=== PATIENT | female | born 1960 | race Caucasian/White ===

== ENCOUNTER → 2017-07-03 | Outpatient (CLI) | payer BC, SELFPAY | PROVIDERS: Family Provider Nurse Practitioner Family; Visit Provider Physician Assistant | DX: R00.0 Tachycardia, unspecified (principal) | CPT/HCPCS: 93005; 93225; 93226 ==

== ENCOUNTER → 2017-10-15 15:18 | Outpatient (CLI) | payer BC, SELFPAY ==
--- NOTE | 2017-10-15 15:22 | XR_ITS ---
XR shoulder RT min 2V COMPARISON: None HISTORY: Right shoulder pain TECHNIQUE: 3 views right shoulder FINDINGS: The clavicle is intact and the AC joint appears normal. Humeral head and glenoid appear normal and there are no soft tissue calcifications or foreign bodies. [place] right lung clear. Right sacrum unremarkable IMPRESSION: Negative right shoulder No fracture nor dislocation
--- NOTE | 2017-10-15 15:25 | XR_ITS ---
XR knee LT 3V COMPARISON: None HISTORY: Left knee pain TECHNIQUE: AP lateral and oblique views FINDINGS: There is no fracture or loose body and there is no degenerative change. The soft tissues are normal. There is no effusion. IMPRESSION: Negative left knee
== END ==
PROVIDERS: PCP Internal Medicine Adolescent Medicine; Visit Provider Orthopaedic Surgery
DX: M25.511 Pain in right shoulder (principal)
CPT/HCPCS: 73030; 73562

== ENCOUNTER → 2017-11-01 12:33 | Outpatient (CLI) | payer BC, SELFPAY ==
--- NOTE | 2017-11-01 12:38 | CA_ITS ---
PROCEDURE: with bubbles INDICATIONS FOR THE TEST: Chest pain COPD Heart Murmur Tobacco Smokingx Palpitationsx Fatiguex Syncope Edema HypertensionxDiabetes Mellitus Rheumatic Fever SOBxDOE ObesityxHyperlipidemia Family History HD Additional History with bubbles PATIENT INFORMATION HEIGHT: 5'4'' WEIGHT: 255 GENDER: Female B/P: 112/68 2-D/M-MODE INTERPRETATION: 2-D MEASUREMENTS OBSERVED VALUES IN CMS Right Ventricular Dimension (RVDd) 2.5 Interventricular Septum (Thickness)(IVsd) 0.8 Left Ventricular Internal Dimensions(LVIDd) 4.4 Left Ventricular Posterior Wall (Thickness)(LVPWd) 1.0 Aortic Root 2.8 Aortic Cusp Separation 1.9 Left Atrial Dimensions (LAD) 2.8 2D 1. Left atrium is normal size, left ventricle is normal size, visually estimated ejection fraction 55% with no obvious regional wall motion abnormality. 2. The right atrium and right ventricle are normal size and contractility. 3. The aortic valve is minimally thickened and fibrosed. 4. The mitral and tricuspid valve leaflets are minimally thickened. 5. The pulmonic valve is poorly is poorly visualized. 6. No significant pericardial effusion noted. DOPPLER INTERROGATION: Doppler interrogation of the aortic, mitral and tricuspid valvular presence of mild mitral and tricuspid regurgitation, tricuspid and jet velocity insufficient for calculation of the right ventricular systolic pressure, diastolic parameters are within normal range. Agitated saline contrast study fails to identify intracardiac shunt. CONCLUSION: 1. Normal left ventricular size, preserved left ventricular systolic function, visually estimated ejection fraction 55% with no obvious regional wall motion abnormality, diastolic parameters are within normal range. 2. Mild mitral and tricuspid regurgitation 3. Agitated saline contrast study fails to identify intracardiac shunt.
== END ==
PROVIDERS: Family Provider Nurse Practitioner Family; PCP Internal Medicine Adolescent Medicine; Visit Provider Physician Assistant
DX: R06.00 Dyspnea, unspecified (principal); R00.0 Tachycardia, unspecified; I10 Essential (primary) hypertension
CPT/HCPCS: 93306

== ENCOUNTER → 2017-11-05 10:47 | Outpatient (CLI) | payer BC, SELFPAY ==
--- NOTE | 2017-11-05 10:49 | NVE_ITS ---
Venous Exam Indications: 729.5 Pain in limb. IMPRESSIONS 1. There is no evidence of significant Reflux. 2. No evidence of deep or superficial vein thrombosis involving the left lower extremity Left lower extremity venous duplex evaluation. Doppler flow study including spectral analysis, color and kamara scale imaging. Location: Vascular laboratory. Patient status: Outpatient. CRITICAL FINDINGS - Reported to: Caron - Salvatore back and verified. - 11/05/17 - 1110 - None Tables: Venous flow and imaging: + +-------+ + Location Overall Flow properties + +-------+ + Left common femoral Patent Normal phasicity; spontaneous; normal augmentation; compressible + +-------+ + Left saphenofemoral junction Patent Compressible + +-------+ + Left profunda femoral Patent Compressible + +-------+ + Left femoral Patent Normal phasicity; spontaneous; normal augmentation; compressible + +-------+ + Left greater saphenous Patent Normal phasicity; spontaneous; normal augmentation; compressible + +-------+ + Left popliteal Patent Normal phasicity; spontaneous; normal augmentation; compressible + +-------+ + Left posterior tibial Patent Compressible + +-------+ + Left peroneal Patent Compressible + +-------+ + Left gastrocnemius Patent Compressible + +-------+ + Left soleal Patent Compressible + +-------+ + (Report amended ) Electronically signed by: Edison Severino [id number]
== END ==
PROVIDERS: PCP Nurse Practitioner Family; Visit Provider Nurse Practitioner Family
DX: M79.605 Pain in left leg (principal); M79.89 Other specified soft tissue disorders
CPT/HCPCS: 93971

== ENCOUNTER → 2019-11-19 12:28 | Outpatient (CLI) | payer MEDICAID, SELFPAY ==
--- NOTE | 2019-11-19 12:41 | XR_ITS ---
PROCEDURE: XR FOOT LT MIN 3V CLINICAL INDICATION: LT FOOT PAIN COMPARISON: No exams were available for comparison FINDINGS: No fracture or dislocation. No lytic or blastic change. There is normal mineralization. The joint spaces are well-preserved. No significant degenerative/arthritic changes. No erosive changes evident. Other findings:There is diffuse generalized osteopenia. There is a small calcaneal spur IMPRESSION: No acute finding. Diffuse osteopenia Dictated by: Edison Severino MD 11/19/2019 18:43 Electronically signed by Edison Severino MD in [facility] 11/19/2019 18:43
== END ==
PROVIDERS: PCP Nurse Practitioner Family; Visit Provider Nurse Practitioner Family
DX: M79.672 Pain in left foot (principal)
CPT/HCPCS: 73630

== ENCOUNTER → 2020-04-01 15:44 | Outpatient (CLI) | payer MEDICAID, SELFPAY ==
--- NOTE | 2020-04-01 | CA_ITS ---
APPROVED REPORT Left Lower Extremity Venous Study for DVT. Tapper Shank: CT Indications Lower Extremity Pain: Lower Extremity Edema: Left Vein Imaging CFV (L): Not Visualized SFJ (L): Not Visualized FEM (L): compressive, spontaneous, phasic, augmentation POP (L): compressive, spontaneous, phasic, augmentation DFV (L): compressive, spontaneous, phasic, augmentation PTV (L): compressive, spontaneous, phasic, augmentation GSV (L): compressive, spontaneous, phasic, augmentation SSV (L): compressive, spontaneous, phasic, augmentation Peroneals (L):Not Visualized GAS (L): compressive, spontaneous, phasic, augmentation Findings LLE neg for DVT/SVT. vessels compressible. Conclusion LLE neg for DVT/SVT. vessels compressible. Electronically signed by : Edison Severino MD 04/02/2020 15:51:25
== END ==
PROVIDERS: PCP Nurse Practitioner Family; Visit Provider Nurse Practitioner Family
DX: M79.605 Pain in left leg (principal); R60.0 Localized edema
CPT/HCPCS: 93971

== ENCOUNTER → 2020-05-25 15:33 | Outpatient (CLI) | payer MEDICAID, SELFPAY ==
--- NOTE | 2020-05-25 15:41 | MM_ITS ---
PROCEDURE: MM DIG SCREENING MAMM BI W/CAD Referring Doctor: Onur Canchola Patient Age:59Y CLINICAL INDICATION: screening, prior in pacs COMPARISON: MG DMDB DIG MAMM-DX DELONTE from 12/16/2013 MG DMSB DIG MAMM-SCREEN DELONTE from 02/03/2015 MG DMDXUL DIG MAMM-DX UNI-LT from 04/16/2015 MG DMDXUL DIG MAMM-DX UNI-LT from 05/05/2015 DX,US MTWCL US MAMMOTOME W/CLIP LT BREAST from 05/05/2015 TECHNIQUE: Standard CC and MLO images were obtained. R2 CAD reviewed. Bilateral digital breast tomosynthesis included. FINDINGS: . Or or low-density breast with generalized fatty read replacement but mild asymmetry again noted Left breast: Scattered low-density areas of nodularity at the lateral left breast are less evident than on previous year studies but there has been a biopsy here in this region with a metallic marker seen deep breast laterally . Right breast: No new findings of significant concern Few scattered benign calcifications again noted-including group of 3 tiny calcifications superior right breast, unchanged since 2014. Stable areas of minimal asymmetric density upper-outer quadrant right breast unchanged and dissipate on the tomosynthesis views Left breast: We again see small areas of nodularity towards the lateral left breast. These scattered areas of density appear fairly stable-and actually appear less dense and slight evident today versus April 2015 and 2013 exam.. There is a metallic micro clip along the posterior aspect of these areas of nodularity reflecting April 2015 biopsy.. With this overall cervical year stability appearance follow-up 1 year be adequate at this point IMPRESSION: No significant new findings either breast. Stable mammogram Left breast: . The scattered densities at the lateral left breast are again noted and appear overall stable, with no progression when compared back to 2013 mammogram . Note metallic micro marker is in place from the April 2015 ultrasound-guided biopsy of 1 of these areas nodularity. Right breast:-stable BI-RAD Category: 2 Benign Finding(s) FOLLOW-UP: 1YR 1 Year Follow-up (A letter has been sent to the patient regarding results of the study.) Dictated by: Waqas Mosley MD 06/02/2020 10:22 Waqas Mosley MD in [facility] 06/02/2020 10:22
== END ==
PROVIDERS: PCP Nurse Practitioner Family; Visit Provider Internal Medicine Adolescent Medicine
DX: Z12.31 Encounter for screening mammogram for malignant neoplasm of breast (principal)
CPT/HCPCS: 77063; 77067

== ENCOUNTER → 2020-07-15 12:18 | Outpatient (CLI) | payer MEDICAID, SELFPAY ==
--- NOTE | 2020-07-15 12:24 | XR_ITS ---
PROCEDURE: XR KUB Referring Doctor: Saumya Kierra Patient Age:59Y CLINICAL INDICATION: DIARRHEA,VOMITING, COMPARISON: CT ABDPELW/O CT ABD PELVIS W/O CONTRAST from 03/27/2015 FINDINGS: AP supine abdomen images obtained and reviewed. No upright images. There is moderate to generous stool throughout the right and transverse colon, and splenic flexure. No small bowel dilatation or obstruction evident. Question slight generous, upper normal wall thickness of gas within the small bowel loops towards left lower quadrant, with but no distension. Unimpressive unlikely normal overall . Small phleboliths at the lower pelvic basin. Clips right upper quadrant likely from cholecystectomy. Spleen appears normal upper normal size. No appreciable renal calcifications. Osseous structures unremarkable on AP view IMPRESSION: No acute findings abdomen A non-specific bowel gas pattern. No bowel dilatation or obstruction Dictated by: Waqas Mosley MD 07/15/2020 12:58 Waqas Mosley MD in [facility] 07/15/2020 12:58
== END ==
PROVIDERS: PCP Nurse Practitioner Family; Visit Provider Nurse Practitioner Family
DX: R68.81 Early satiety (principal); R19.7 Diarrhea, unspecified; R11.10 Vomiting, unspecified
CPT/HCPCS: 74018

== ENCOUNTER 2020-07-23 11:32 | Emergency (ER) | payer OTHER, SELFPAY ==
[2020-07-23 11:32] VITALS: BP 116/68; PULSE 87; RESP 16; TEMP 36.6; O2SAT 98; BMI 41.1
--- NOTE | 2020-07-23 11:38 | HMH.EDGENADL ---
ED Disposition Clinical Impression: Ankle pain, left Qualifiers: Chronicity: acute Qualified Code(s): M25.572 - Pain in left ankle and joints of left foot Disposition: Home, Self-Care Condition on Discharge: Good Additional Instructions: Please return if any new or worsening symptoms. Otherwise use Tylenol and ice on affected area. Referrals: PCP,No [Primary Care Provider] - - Critical Care Critical Care Time: No Attestation: On , the high probability of a clinically significant, sudden or life threatening deterioration of the following system(s) required my full and direct attention, intervention and personal management. The time I documented below is in addition to time spent performing reported procedures but includes the following listed in this critical care notation. Medical Decision Making - Medical Records Medical records reviewed: Yes: I reviewed the patient's medical records. - Shan Inquiry Pt receiving controlled substance: No Vital Signs: 07/23/20 11:32 Temperature 98 F Temperature Source Oral Pulse Rate [Radial] 87 Respiratory Rate 16 Blood Pressure [Right Arm] 116/68 Blood Pressure Mean [Right Arm] 84 Blood Pressure Position [Right Arm] Sitting 02 Sat by Pulse Oximetry 98 Oxygen Delivery Method Room Air Medical Decision Narrative: Patient presents to the emergency department with left ankle/foot pain as well as neck pain after mechanical fall. Patient does have some midline tenderness on palpation of her C-spine so CT C-spine will be obtained to ensure no cervical spine fracture/subluxation. Also, plain films of patient's ankle/foot on the left thigh will be obtained to ensure no fracture/dislocation. Difficulty fully assessed with the patient is neurovascularly intact she does have old CVA but there not appear to be new changes based on patient's history. She denies any prodromal symptoms and states she simply had mechanical fall. CT negative for any cervical spine fracture/subluxation as well as ankle and foot films negative for any bony abnormality. At this time, patient still stable and I do not believe there is any significant change from patient's baseline functional status secondary to pain. I instructed to use ice on affected area as well as Tylenol. She agrees. She will not exceed 3 to 4 g of Tylenol in a 24-hour period. She will return if any new or worsening symptoms otherwise she will follow up with her primary care doctor for recheck in several days. Assessment: Left ankle pain Neck pain Mechanical fall History of CVA with left-sided residual deficits Disposition: Home with follow-up General Adult HPI - General Chief complaint: Fall Stated complaint: FALL Time Seen by Provider: 07/23/20 11:50 - History of Present Illness HPI narrative: Patient is a 59-year-old female history of old CVA with left-sided residual deficits presenting after mechanical fall. At 2 AM patient states she was at her bedside placing an incontinence pad. She slipped and fell. She suffered a mechanical fall. She not hit her head or lose consciousness but states her neck contorted in a funny way she now has some stiffness in her neck. She also suffered some pain to her left ankle/foot. EMS called initially but patient was not hurting at that time. After she went to sleep and woke up this morning the pain was worse and she felt stiff. No other injuries to report. She denies any prodromal symptoms or any syncopal spells. - Related Data Home Medications Medication Instructions Recorded Confirmed Clopidogrel Bisulfate [Plavix 75mg 75 mg PO DAILY 06/22/18 06/22/18 Tab] Sertraline HCl [Zoloft 50mg tablet] 50 mg PO BID 06/22/18 06/22/18 Verapamil HCl [Verapamil ER] 180 mg PO DAILY 06/22/18 06/22/18 lisinopriL [Lisinopril 10mg Tab] 10 mg PO DAILY 06/22/18 06/22/18 Allergies Allergy/AdvReac Type Severity Reaction Status Date / Time Penicillins Allergy Intermediate WEAKNE
--- NOTE | 2020-07-23 11:52 | CT_ITS ---
PROCEDURE: CT CERVICAL SPINE WO CON CLINICAL INDICATION: PAIN, FALL Posttraumatic pain, fall with injury and pain COMPARISON: No exams were available for comparison TECHNIQUE: Axial images obtained with sagittal and coronal reformats. All CT scans at the facility use one or more dose reduction, viz: automated exposure control, ma/kV adjustment per patient size (including targeted exams where dose is matched to indication, i.e. head), or iterative reconstruction technique. Axial spiral CT scanning performed of the cervical spine beginning at the base of the skull and continuing to the upper T-spine. 3-D multiplanar reconstruction with 3-D manipulation of volumetric data set in image rendering was completed by the radiologist and/or technologist with the supervision of the radiologist on independent workstation. FINDINGS: No fracture or dislocation. Normal alignment. Mild diffuse osteopenia. Mild degenerative disc disease C5-C6. Lung apices are clear. There is a retropharyngeal calcific density on the right and may be related to partially calcified retropharyngeal course of the carotid artery. This is at C2-C3 level. Nonemergent CT angiogram may confirm. 1.7 x 1.2 cm node is present in the internal jugular chain on the left. Other scattered smaller nodes are apparent as well. IMPRESSION: No acute fracture. Other nonacute findings as described above Dictated by: Edison Severino MD 07/23/2020 12:53 Edison Severino MD in [facility] 07/23/2020 12:53
--- NOTE | 2020-07-23 11:52 | XR_ITS ---
PROCEDURE: XR ANKLE LT MIN 3V CLINICAL INDICATION: FALL Posttraumatic pain COMPARISON: CR XR FOOT LT MIN 3V from 07/23/2020 FINDINGS: No fracture or dislocation. There is diffuse osteopenia. Mild diffuse subcutaneous calcification nonspecific in the lower leg IMPRESSION: No acute fracture Diffuse osteopenia. Diffuse soft tissue calcification in the lower leg Dictated by: Edison Severino MD 07/23/2020 12:48 Edison Severino MD in [facility] 07/23/2020 12:48
[2020-07-23 15:15] VITALS: BP 129/69; PULSE 84; RESP 18; TEMP 36.6; O2SAT 98
== END 2020-07-23 16:09 | disposition home or self-care (01) ==
PROVIDERS: Emergency Provider Emergency Medicine
DX: M25.572 Pain in left ankle and joints of left foot (principal); M54.2 Cervicalgia; Z86.73 Personal history of transient ischemic attack (TIA), and cerebral infarction without residual deficits; G81.94 Hemiplegia, unspecified affecting left nondominant side; I10 Essential (primary) hypertension; W01.0XXA Fall on same level from slipping, tripping and stumbling without subsequent striking against object, initial encounter; Y92.019 Unspecified place in single-family (private) house as the place of occurrence of the external cause
CPT/HCPCS: 72125; 73610; 73630; 99282

== ENCOUNTER → 2021-03-02 16:29 | Outpatient (CLI) | payer OTHER, SELFPAY ==
[2021-03-02 16:48] LABS: Basophils # 0.1 K/mm3 (0-0.2); Basophils % 0.4 % (0.1-2.0); Eosinophils # 0.2 K/mm3 (0.0-0.4); Eosinophils % 1.2 % (0.1-12.0); Hematocrit 42.1 % (37.0-47.0); Hemoglobin 14.6 g/dL (12.2-16.2); Lymphocytes # 3.2 K/mm3 (0.7-4.5); Lymphocytes % 20.8 % (10-50); Mean Corpuscular HGB Conc 34.7 g/dL (31.8-35.4); Mean Corpuscular Hemoglobin 30.1 pg (27.0-31.2); Mean Corpuscular Volume 86.8 fl (81-99); Mean Platelet Volume 8.5 fl (7.4-10.4); Monocytes # 0.5 K/mm3 (0.1-1.0); Monocytes % 3.2 % (1.7-9.3); Neutrophils # 11.3 K/mm3 (1.8-7.8); Neutrophils % 74.5 % (37.0-80.0); Platelet Count 248 K/mm3 (142-424); Red Blood Count 4.86 M/mm3 (4.20-5.40); Red Cell Distribution Width 15.3 % (11.5-17.5); White Blood Count 15.2 K/mm3 (4.8-10.8)
[2021-03-02 16:50] LABS: MANUAL DIFFERENTIAL MANUAL DIFFERENTIAL (MANUAL DIFF)
[2021-03-02 17:09] LABS: Hemoglobin A1C 6.7 % (4.0-6.0)
[2021-03-02 17:39] LABS: Eosinophils % 4 % (0-3); Lymphocytes % 29 % (10-50); Monocytes % 5 % (2-9); Neutrophils % 62 % (42-76); Platelet Estimate Normal; Total Cells Counted 100
[2021-03-02 18:04] LABS: Chloride 102 mmol/L (98-107); Potassium 4.1 mmoL/L (3.5-5.1); Sodium 142 mmol/L (136-145)
[2021-03-02 18:06] LABS: Alanine Aminotransferase 31 U/L (12-78); Aspartate Amino Transferase 37 U/L (14-36); Blood Urea Nitrogen 18 mg/dl (7-17); Estimated Glomerular Filt Rate 103 ml/min (>60); GFR (African American) 124 ML/MIN (>60)
[2021-03-02 18:07] LABS: Albumin Level 4.3 g/dl (3.5-5.0); Albumin/Globulin Ratio 1.4 (1.1-1.8); Alkaline Phosphatase 190 U/L (38-126); Anion Gap 12.1 mEq/L (5-15); Bilirubin,Total 0.6 mg/dl (0.2-1.3); Calcium 9.2 mg/dl (8.4-10.2); Carbon Dioxide 32 mmol/L (22.0-30.0); Globulin 3.1 g/dL (1.3-3.2); Glucose 145 mg/dl (74-100); Total Protein,Serum 7.4 g/dl (6.3-8.2)
[2021-03-02 18:32] LABS: 25-OH Vitamin D, Total 23.9 ng/mL (30-100)
[2021-03-02 19:06] LABS: Vitamin B12 325 pg/mL (239-931)
== END ==
PROVIDERS: Visit Provider Nurse Practitioner Family
DX: E11.65 Type 2 diabetes mellitus with hyperglycemia (principal); E53.8 Deficiency of other specified B group vitamins; E55.9 Vitamin D deficiency, unspecified
CPT/HCPCS: 36415; 80053; 82306; 82607; 83036; 85007; 85025

== ENCOUNTER 2021-05-20 14:33 | Emergency (ER) | payer MEDICARE, SELFPAY ==
[2021-05-20 14:33] VITALS: BP 146/98; PULSE 79; RESP 16; TEMP 36.7; O2SAT 95; BMI 41.1
--- NOTE | 2021-05-20 14:59 | XR_ITS ---
PROCEDURE: XR ANKLE LT MIN 3V CLINICAL INDICATION: fall COMPARISON: CR XR ANKLE LT MIN 3V from 07/23/2020 FINDINGS: There is a nondisplaced oblique fracture of the distal fibular shaft 3.7 cm proximal to the tip of the fibula. In addition there is a nondisplaced avulsion fracture the tip of the medial malleolus as well as and medial cortical fracture of the medial malleolus at the diaphyseal metaphyseal junction The joint spaces are well-preserved. No significant degenerative/arthritic changes. No erosive changes evident. Other findings:None. IMPRESSION: Nondisplaced distal tib fib fractures as detailed above Dictated by: Edison Severino MD 05/20/2021 16:20 Edison Severino MD in [facility] 05/20/2021 16:20
--- NOTE | 2021-05-20 15:01 | CT_ITS ---
PROCEDURE: CT HEAD/BRAIN WO CON CLINICAL INDICATION: left leg weakness COMPARISON: CT HEADWO CT head/brain wo con from 06/22/2018 TECHNIQUE: Axial images obtained. All CT scans at the facility use one or more dose reduction, viz: automated exposure control, ma/kV adjustment per patient size (including targeted exams where dose is matched to indication, i.e. head), or iterative reconstruction technique. FINDINGS: No midline shift, mass effect, intracranial hemorrhage, hydrocephalus, or extra-axial fluid collection is evident. There are encephalomalacia changes in the right frontal parietal region and right parietal lobe. Old lacunar infarctions noted in the right basal ganglia. There is generalized atrophy with hypoattenuation of the periventricular white matter consistent with microangiopathic changes.. The calvarium has an unremarkable appearance. No mastoid effusion. No sinus air-fluid level. IMPRESSION: 1. No acute intracranial findings. 2. Chronic ischemic changes Dictated by: Edison Severino MD 05/20/2021 16:01 Edison Severino MD in [facility] 05/20/2021 16:01
--- NOTE | 2021-05-20 15:02 | XR_ITS ---
PROCEDURE: XR CHEST AP CLINICAL HISTORY: left leg weakness COMPARISON: CR CXR1VP XR chest portable from 06/22/2018 FINDINGS: The cardiomediastinal silhouette and pulmonary vascularity are within normal limits. The lungs are clear without infiltrates, suspicious nodules, or pleural effusions. No acute bony abnormalities. IMPRESSION: No acute findings. Dictated by: Edison Severino MD 05/20/2021 16:03 Edison Severino MD in [facility] 05/20/2021 16:03
[2021-05-20 15:10] LABS: POC Glucose,Bedside 187 (70-110)
[2021-05-20 15:35] VITALS: BP 151/68; PULSE 92; RESP 18; O2SAT 94
--- NOTE | 2021-05-20 15:45 | ECG_ITS ---
APPROVED REPORT Exam: Resting ECG HR:90 bpm ECG Measurements Heart Rate 90 AXES DC 156 P 42 QRSd 94 QRS -5 QT 406 T 29 QTc 496 Conclusion Normal sinus rhythm Low voltage QRS Septal infarct, age undetermined Abnormal ECG Electronically signed by : Onur Canchola MD 05/21/2021 10:57:13
--- NOTE | 2021-05-20 15:46 | HMH.EDGENADL ---
ED Disposition Clinical Impression: Left leg weakness Closed left ankle fracture Qualifiers: Encounter type: initial encounter Qualified Code(s): S82.892A - Other fracture of left lower leg, initial encounter for closed fracture UTI (urinary tract infection) Qualifiers: Urinary tract infection type: acute cystitis Hematuria presence: without hematuria Qualified Code(s): N30.00 - Acute cystitis without hematuria Disposition: Home, Self-Care Condition on Discharge: Fair Instructions: How to Prevent Falls Additional Instructions: Wear orthopedic boot and use your wheelchair, bearing weight only to transfer. Follow-up with orthopedics, Dr. Varela, in the office next week. Call Sunday to make appointment. Percocet as needed for pain. Additional instructions for URINARY TRACT INFECTION: Take antibiotic as prescribed. See your physician in 2-3 days for follow up and culture results. Return immediately if you have an uncontrollable fever greater than 102 degrees, severe back or abdominal pain, inability to urinate, or repetitive vomiting. Prescriptions: Oxycodone HCl/Acetaminophen [Percocet 5/325mg tablet] 1 tab PO Q6HP PRN #10 tablet PRN Reason: Moderate To Severe Pain Transmission Status: Sent to [id number] Ciprofloxacin HCl [Cipro 500mg Tab] 500 mg PO BID #14 tab Transmission Status: Pending to [id number] Referrals: Kierra Kerns APRN [Primary Care Provider] - - Critical Care Critical Care Time: No Attestation: On 05/20/21, the high probability of a clinically significant, sudden or life threatening deterioration of the following system(s) required my full and direct attention, intervention and personal management. The time I documented below is in addition to time spent performing reported procedures but includes the following listed in this critical care notation. Medical Decision Making - Shan Inquiry Pt receiving controlled substance: No Vital Signs: 05/20/21 14:33 05/20/21 15:35 05/20/21 16:03 Temperature 98.1 F Temperature Source Oral Pulse Rate 92 H 89 Pulse Rate [Right] 79 Respiratory Rate 16 18 14 Blood Pressure 151/68 H 157/74 H Blood Pressure [Right Arm] 146/98 H Blood Pressure Mean 95 102 Blood Pressure Mean [Right Arm] 114 Blood Pressure Source [Right Arm] Automatic Cuff Blood Pressure Position [Right Arm] Sitting 02 Sat by Pulse Oximetry 95 94 L 95 Oxygen Delivery Method Room Air Room Air - Lab Data Lab Results 05/20/21 15:03: POC Glucose 187 H 05/20/21 15:35: WBC 16.8 H, RBC 5.06, Hgb 15.4, Hct 46.7, MCV 92.4, MCH 30.4, MCHC 32.9, RDW 14.8, Plt Count 301, MPV 8.8, Neut % (Auto) 81.1 H, Lymph % (Auto) 14.0, [place] % (Auto) 3.6, Eos % (Auto) 0.8, Baso % (Auto) 0.5, Neut # (Auto) 13.6 H, Lymph # (Auto) 2.4, [place] # (Auto) 0.6, Eos # (Auto) 0.1, Baso # (Auto) 0.1, Total Counted 100, Neutrophils % (Manual) 83 H, Lymphocytes % (Manual) 13, Monocytes % (Manual) 3, Eosinophils % (Manual) 1, Platelet Estimate Normal, RBC Morphology Normal 05/20/21 15:35: Sodium 139, Potassium 3.6, Chloride 100, Carbon Dioxide 30, Anion Gap 12.6, BUN 18 H, Creatinine 0.50 L, Estimated Creat Clear 211, Estimated GFR 127, Est GFR ( Amer) 153, Glucose 201 H, Calcium 9.2, Total Bilirubin 0.5, AST 114 H, ALT 59, Alkaline Phosphatase 165 H, Troponin I < 0.01, Total Protein 7.4, Albumin 4.2, Globulin 3.2, Albumin/Globulin Ratio 1.3 05/20/21 18:28: Troponin I < 0.01 05/20/21 18:30: Urine Color Yellow, Urine Appearance Cloudy, Urine pH 7.0, Ur Specific [place] 1.010, Urine Protein Trace, Urine Glucose (UA) Negative, Urine Ketones Trace, Urine Blood 3+, Urine Nitrate Positive, Urine Bilirubin Negative, Urine Urobilinogen 0.2, Ur Leukocyte Esterase Negative, Urine RBC 5-10, Urine WBC 5-10, Ur Squamous Epith Cells Occasional, Urine Bacteria 2+ Result diagrams: 05/20/21 15:35 05/20/21 15:35 Orders (Tests/Meds): ED MEDICATIONS Discontinued Medications G
[2021-05-20 15:54] LABS: Chloride 100 mmol/L (98-107); Potassium 3.6 mmoL/L (3.5-5.1); Sodium 139 mmol/L (136-145)
[2021-05-20 15:57] LABS: Alanine Aminotransferase 59 U/L (12-78); Albumin Level 4.2 g/dl (3.5-5.0); Albumin/Globulin Ratio 1.3 (1.1-1.8); Alkaline Phosphatase 165 U/L (38-126); Anion Gap 12.6 mEq/L (5-15); Aspartate Amino Transferase 114 U/L (14-36); Bilirubin,Total 0.5 mg/dl (0.2-1.3); Blood Urea Nitrogen 18 mg/dl (7-17); Carbon Dioxide 30 mmol/L (22.0-30.0); Creatinine Clearance Estimated 211 mL/min (50-200); Estimated Glomerular Filt Rate 127 ml/min (>60); GFR (African American) 153 ML/MIN (>60); Globulin 3.2 g/dL (1.3-3.2); Total Protein,Serum 7.4 g/dl (6.3-8.2)
[2021-05-20 15:58] LABS: Calcium 9.2 mg/dl (8.4-10.2); Glucose 201 mg/dl (74-100)
[2021-05-20 16:03] VITALS: BP 157/74; PULSE 89; RESP 14; O2SAT 95
[2021-05-20 16:07] LABS: Basophils # 0.1 K/mm3 (0-0.2); Basophils % 0.5 % (0.1-2.0); Eosinophils # 0.1 K/mm3 (0.0-0.4); Eosinophils % 0.8 % (0.1-12.0); Hematocrit 46.7 % (37.0-47.0); Hemoglobin 15.4 g/dL (12.2-16.2); Lymphocytes # 2.4 K/mm3 (0.7-4.5); Mean Corpuscular HGB Conc 32.9 g/dL (31.8-35.4); Mean Corpuscular Hemoglobin 30.4 pg (27.0-31.2); Mean Corpuscular Volume 92.4 fl (81-99); Mean Platelet Volume 8.8 fl (7.4-10.4); Monocytes # 0.6 K/mm3 (0.1-1.0); Monocytes % 3.6 % (1.7-9.3); Neutrophils # 13.6 K/mm3 (1.8-7.8); Neutrophils % 81.1 % (37.0-80.0); Platelet Count 301 K/mm3 (142-424); Red Blood Count 5.06 M/mm3 (4.20-5.40); Red Cell Distribution Width 14.8 % (11.5-17.5); White Blood Count 16.8 K/mm3 (4.8-10.8)
--- NOTE | 2021-05-20 16:07 | CT_ITS ---
PROCEDURE INFORMATION: Exam: CT Angiography Head With Contrast, Arteriography Exam date and time: 05/20/2021 4:07 PM Age: 60 years old Clinical indication: Patient HX: Left leg weakness, HX of stroke TECHNIQUE: Imaging protocol: Computed tomography angiography of the head with contrast. Exam focused on the arteries. 3D rendering (Not supervised by radiologist): MIP and/or 3D reconstructed images were created by the technologist. Radiation optimization: All CT scans at this facility use at least one of these dose optimization techniques: automated exposure control; mA and/or kV adjustment per patient size (includes targeted exams where dose is matched to clinical indication); or iterative reconstruction. Contrast material: ISOVUE; Contrast volume: 100 ml; Contrast route: INTRAVENOUS (IV); COMPARISON: CT HEAD/BRAIN WO CON 05/20/2021 3:13 PM FINDINGS: ANTERIOR CIRCULATION: Right internal carotid artery: Unremarkable. Intracranial segment is patent with no significant stenosis. No aneurysm. Right middle cerebral artery: Unremarkable. Intracranial segment is patent with no significant stenosis. No aneurysm. Right anterior cerebral artery: Unremarkable. No occlusion or significant stenosis. No aneurysm. Left internal carotid artery: Unremarkable. Intracranial segment is patent with no significant stenosis. No aneurysm. Left middle cerebral artery: Unremarkable. No occlusion or significant stenosis. No aneurysm. Left anterior cerebral artery: Unremarkable. No occlusion or significant stenosis. No aneurysm. POSTERIOR CIRCULATION: Right vertebral artery: Unremarkable. No occlusion or significant stenosis. No aneurysm. Left vertebral artery: Unremarkable. No occlusion or significant stenosis. No aneurysm. 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 Right posterior cerebral artery: Right [employer] has a origin. Left posterior cerebral artery: Left [employer] has a origin. Brain: Encephalomalacia in the right MCA territory appears chronic. Cerebral ventricles: No ventriculomegaly. Orbital cavity: Incidental note of a tiny calcification in the posterior aspect of the left lobe near the optic nerve. It has a similar appearance to 2018. Bones/joints: Unremarkable. No acute fracture. Soft tissues: Unremarkable. IMPRESSION: No high-grade stenosis or occlusions
--- NOTE | 2021-05-20 16:07 | CT_ITS ---
PROCEDURE INFORMATION: Exam: CT Angiography Neck With Contrast Exam date and time: 05/20/2021 4:07 PM Age: 60 years old Clinical indication: Patient HX: Left leg weakness, HX of stroke TECHNIQUE: Imaging protocol: Computed tomography angiography of the neck with contrast. 3D rendering (Not supervised by radiologist): MIP and/or 3D reconstructed images were created by the technologist. Radiation optimization: All CT scans at this facility use at least one of these dose optimization techniques: automated exposure control; mA and/or kV adjustment per patient size (includes targeted exams where dose is matched to clinical indication); or iterative reconstruction. Contrast material: ISOVUE; Contrast volume: 100 ml; Contrast route: INTRAVENOUS (IV); COMPARISON: CT HEAD/BRAIN WO CON 05/20/2021 3:13 PM FINDINGS: Right common carotid artery: No stenosis. No dissection or occlusion. Right internal carotid artery: Plaque in the proximal right ICA about 2 cm beyond the origin causes approximately 50% stenosis. Right external carotid artery: No occlusion or stenosis of the origin. Left common carotid artery: No stenosis. No dissection or occlusion. Left internal carotid artery: No stenosis of the extracranial segment. No dissection or occlusion. Left external carotid artery: No occlusion or stenosis of the origin. Right vertebral artery: No stenosis. No dissection or occlusion. Left vertebral artery: No stenosis. No dissection or occlusion. Soft tissues: Normal. No significant soft tissue swelling. Bones/joints: No acute fracture. IMPRESSION: Plaque in the proximal right ICA about 2 cm beyond the origin causes approximately 50% stenosis. REFERENCES: NASCET CRITERIA. The degree of internal carotid artery stenosis is based on NASCET criteria. Normal is no stenosis. Mild is less than 50% stenosis. Moderate is 50-69% stenosis. Severe is 70% to 99% stenosis. Total occlusion is no detectable patent lumen.
[2021-05-20 16:09] LABS: MANUAL DIFFERENTIAL MANUAL DIFFERENTIAL (MANUAL DIFF)
[2021-05-20 16:10] LABS: Troponin I < 0.01 ng/ml (0.00-0.034)
[2021-05-20 16:57] LABS: Eosinophils % 1 % (0-3); Lymphocytes % 13 % (10-50); Monocytes % 3 % (2-9); Neutrophils % 83 % (42-76); Platelet Estimate Normal; RBC Morphology Normal; Total Cells Counted 100
--- NOTE | 2021-05-20 17:57 | PC.NURSE ---
DR. Avery arteaga
--- NOTE | 2021-05-20 17:58 | PC.NURSE ---
speaking with Dr. Varela
--- NOTE | 2021-05-20 18:17 | PC.NURSE ---
Doctor Benites on the phone with Doctor Morley
[2021-05-20 18:45] LABS: Microscopic, Urine URINE MICROSCOPIC (MICROSCOPIC)
[2021-05-20 18:47] LABS: Appearance,Urine CLOUDY (Clear); Bilirubin,Urine Negative (Negative); Blood, Urine 3+ (Negative); Color,Urine YELLOW (Yellow); Glucose,Urine (UA) Negative (Negative); Ketones,Urine TRACE (Negative); Leukocyte Esterase,Urine Negative (Negative); Nitrate,Urine POSITIVE (Negative); Protein,Urine TRACE (Negative); Urobilinogen,Urine 0.2 EU/dl (0.2)
[2021-05-20 19:02] LABS: Troponin I < 0.01 ng/ml (0.00-0.034)
[2021-05-20 19:15] LABS: Bacteria,Urine 2+ /lpf; Squamous Epithelial Cell,Urine Occasional #/hpf (0-5)
[2021-05-20 20:07] VITALS: BP 142/70; PULSE 76; RESP 16; TEMP 36.8; O2SAT 99
== END 2021-05-20 20:22 | disposition home or self-care (01) ==
PROVIDERS: Emergency Provider Emergency Medicine; PCP Nurse Practitioner Family
DX: S82.302A Unspecified fracture of lower end of left tibia, initial encounter for closed fracture (principal); S82.832A Other fracture of upper and lower end of left fibula, initial encounter for closed fracture; W18.39XA Other fall on same level, initial encounter; Y92.019 Unspecified place in single-family (private) house as the place of occurrence of the external cause; I10 Essential (primary) hypertension; Z86.73 Personal history of transient ischemic attack (TIA), and cerebral infarction without residual deficits; Z88.0 Allergy status to penicillin; N30.00 Acute cystitis without hematuria; R73.9 Hyperglycemia, unspecified
CPT/HCPCS: 36415; 70450; 70496; 70498; 71045; 73610; 80053; 81001; 82962; 84484; 85007; 85025; 87086; 87088; 87186; 93005; 99284; Q9967

== ENCOUNTER 2021-07-08 22:52 | Inpatient (IN) | payer MEDICARE, SELFPAY ==
[2021-07-08 22:52] VITALS: BP 199/97; PULSE 106; RESP 20; TEMP 37.2; O2SAT 99; BMI 40.2
--- NOTE | 2021-07-08 23:00 | ECG_ITS ---
APPROVED REPORT Exam: Resting ECG HR:106 bpm ECG Measurements Heart Rate 106 AXES MS 162 P 63 QRSd 84 QRS -11 QT 344 T 18 QTc 456 Conclusion Sinus tachycardia Low voltage QRS Septal infarct, age undetermined Cannot rule out Inferior infarct, age undetermined Abnormal ECG Electronically signed by : Onur Canchola MD 07/09/2021 09:47:50
--- NOTE | 2021-07-08 23:25 | CT_ITS ---
PROCEDURE INFORMATION: Exam: CT Head Without Contrast Exam date and time: 07/08/2021 11:25 PM Age: 60 years old Clinical indication: Other: Generalized weakness TECHNIQUE: Imaging protocol: Computed tomography of the head without contrast. Radiation optimization: All CT scans at this facility use at least one of these dose optimization techniques: automated exposure control; mA and/or kV adjustment per patient size (includes targeted exams where dose is matched to clinical indication); or iterative reconstruction. COMPARISON: CT HEAD/BRAIN WO CON 05/20/2021 3:13 PM FINDINGS: Brain: Generalized brain volume loss. Large chronic right MCA infarct (primarily involving the frontal and parietal lobes) is unchanged. Chronic right striatocapsular lacunar infarcts. Moderate to extensive patchy periventricular low attenuation suggesting chronic microangiopathy is similar to prior. No acute appearing loss of kamara-white differentiation or CT evidence of acute ischemia. No intracranial hemorrhage. No mass effect or midline shift. Cerebral ventricles: Compensatory ex vacuo dilation of the right lateral ventricle, similar to prior. Basal cisterns are patent. Paranasal sinuses: Nonaggressive mucosal thickening in the ethmoid air cells. No fluid levels. Mastoid air cells: Visualized mastoid air cells are well aerated. Orbital cavity: Small calcifications in the posterior globes near the optic nerves, possibly representing drusen, again noted. Bones/joints: No depressed or calvarial fracture. Soft tissues: Cerebrovascular calcifications. Otherwise unremarkable. IMPRESSION: 1. No evidence of an acute intracranial abnormality. 2. Large chronic right MCA infarct. Global senescent change with presumed sequela of chronic microangiopathy.
[2021-07-08 23:31] VITALS: BP 200/111; PULSE 106; RESP 16; O2SAT 93
--- NOTE | 2021-07-08 23:31 | HMH.EDWEAK ---
ED Disposition Clinical Impression: Weakness of one side of body, Hyperglycemia Hypertension Qualifiers: Hypertension type: primary hypertension Qualified Code(s): I10 - Essential (primary) hypertension Obesity Qualifiers: Obesity type: due to excess calories Obesity classification: adult class 3 (BMI >= 40) Serious obesity comorbidity presence: with serious comorbidity Body mass index: BMI 40.0-44.9 Qualified Code(s): E66.01 - Morbid (severe) obesity due to excess calories; Z68.41 - Body mass index [BMI] 40.0-44.9, adult CVA (cerebral vascular accident) Qualifiers: CVA mechanism: unspecified Qualified Code(s): I63.9 - Cerebral infarction, unspecified UTI (urinary tract infection) Qualifiers: Urinary tract infection type: site unspecified Hematuria presence: without hematuria Qualified Code(s): N39.0 - Urinary tract infection, site not specified Disposition: Admitted As Inpatient Condition on Discharge: Good Referrals: Kierra Kerns APRN [Primary Care Provider] - - Critical Care Critical Care Time: No Attestation: On 07/08/21, the high probability of a clinically significant, sudden or life threatening deterioration of the following system(s) required my full and direct attention, intervention and personal management. The time I documented below is in addition to time spent performing reported procedures but includes the following listed in this critical care notation. Medical Decision Making - Medical Records Medical records reviewed: Yes: I reviewed the patient's medical records. - Shan Inquiry Pt receiving controlled substance: No Vital Signs: 07/08/21 22:52 07/08/21 23:42 Temperature 99 F 98.5 F Temperature Source Oral Rectal Pulse Rate [Right] 106 H Respiratory Rate 20 Blood Pressure [Right Arm] 199/97 H Blood Pressure Mean [Right Arm] 131 02 Sat by Pulse Oximetry 99 - Lab Data Lab results reviewed: Yes: I reviewed the patient's lab results. Lab Results 07/08/21 23:01: WBC 10.3, RBC 5.02, Hgb 15.6, Hct 48.3 H, MCV 96.2, MCH 31.1, MCHC 32.3, RDW 14.6, Plt Count 218, MPV 10.1, Neut % (Auto) 66.3, Lymph % (Auto) 25.4, [place] % (Auto) 3.8, Eos % (Auto) 2.2, Baso % (Auto) 2.2 H, Neut # (Auto) 6.8, Lymph # (Auto) 2.6, [place] # (Auto) 0.4, Eos # (Auto) 0.2, Baso # (Auto) 0.2 07/08/21 23:01: Sodium 137, Potassium 4.1, Chloride 102, Carbon Dioxide 29, Anion Gap 10.1, BUN 11, Creatinine 0.60, Estimated Creat Clear 161, Estimated GFR 103, Est GFR ( Amer) 124, Glucose 163 H, Calcium 9.5, Total Bilirubin 0.6, AST 33, ALT 36, Alkaline Phosphatase 185 H, C-Reactive Protein 7.0 H, Total Protein 7.4, Albumin 4.3, Globulin 3.1, Albumin/Globulin Ratio 1.4, Lipase 91, Procalcitonin 0.059 07/08/21 23:01: ESR 19 07/08/21 23:01: POC Glucose 188 H 07/08/21 23:37: Urine Color Yellow, Urine Appearance Clear, Urine pH 7.0, Ur Specific Gunter 1.020, Urine Protein Negative, Urine Glucose (UA) Negative, Urine Ketones Negative, Urine Blood Trace-i, Urine Nitrate Negative, Urine Bilirubin Negative, Urine Urobilinogen 0.2, Ur Leukocyte Esterase Trace, Urine RBC 3-5, Urine WBC 10-20 07/08/21 23:37: Urine Opiates Screen Negative, Urine Methadone Screen Negative, Ur Barbituates Screen Negative, Ur Phencyclidine Scrn Negative, Ur Amphetamines Screen Negative, U Benzodiazepines Scrn Negative, Urine Cocaine Screen Negative, U Marijuana (THC) Screen Negative Result diagrams: 07/08/21 23:01 07/08/21 23:01 Orders (Tests/Meds): ED MEDICATIONS Discontinued Medications Generic Name Dose Route Start Last Admin Trade Name Freq PRN Reason Stop Dose Admin Amlodipine Besylate 5 mg 07/09/21 01:19 Amlodipine 5mg Tablet PO 07/09/21 01:20 ONCE ONE ORDERS Category Date Time Status Rapid PCR Covid and Flu A/B Stat Lab 07/09/21 01:16 Ordered Urine Culture Stat Micro 07/08/21 23:37 Received - Radiology Data #1 Image(s): Chest Image Reviewed: Yes I have reviewed radiologist's interpretatio
--- NOTE | 2021-07-08 23:32 | XR_ITS ---
PROCEDURE INFORMATION: Exam: XR Chest Exam date and time: 07/08/2021 11:32 PM Age: 60 years old Clinical indication: Wheezing TECHNIQUE: Imaging protocol: XR of the chest. Views: 4 or more views. COMPARISON: CR XR CHEST AP 05/20/2021 3:21 PM FINDINGS: Lungs: Unremarkable. No consolidation. Pleural spaces: Unremarkable. No pleural effusion. No pneumothorax. Heart/Mediastinum: Unremarkable. No cardiomegaly. Bones/joints: Spondylosis. IMPRESSION: No acute findings.
[2021-07-08 23:40] LABS: Basophils # 0.2 K/mm3 (0-0.2); Basophils % 2.2 % (0.1-2.0); Eosinophils # 0.2 K/mm3 (0.0-0.4); Eosinophils % 2.2 % (0.1-12.0); Hematocrit 48.3 % (37.0-47.0); Hemoglobin 15.6 g/dL (12.2-16.2); Lymphocytes # 2.6 K/mm3 (0.7-4.5); Lymphocytes % 25.4 % (10-50); Mean Corpuscular HGB Conc 32.3 g/dL (31.8-35.4); Mean Corpuscular Hemoglobin 31.1 pg (27.0-31.2); Mean Corpuscular Volume 96.2 fl (81-99); Mean Platelet Volume 10.1 fl (7.4-10.4); Monocytes # 0.4 K/mm3 (0.1-1.0); Monocytes % 3.8 % (1.7-9.3); Neutrophils # 6.8 K/mm3 (1.8-7.8); Neutrophils % 66.3 % (37.0-80.0); Platelet Count 218 K/mm3 (142-424); Red Blood Count 5.02 M/mm3 (4.20-5.40); Red Cell Distribution Width 14.6 % (11.5-17.5); White Blood Count 10.3 K/mm3 (4.8-10.8)
--- NOTE | 2021-07-08 23:41 | PC.WOUNDNOTE ---
camacho cath placed 2330 ua collected and rectal temp obtained 98.5
[2021-07-08 23:42] VITALS: TEMP 36.9
[2021-07-08 23:43] LABS: Microscopic, Urine URINE MICROSCOPIC (MICROSCOPIC)
[2021-07-08 23:44] LABS: POC Glucose,Bedside 188 (70-110)
[2021-07-08 23:46] LABS: Alanine Aminotransferase 36 U/L (12-78); Albumin Level 4.3 g/dl (3.5-5.0); Albumin/Globulin Ratio 1.4 (1.1-1.8); Alkaline Phosphatase 185 U/L (38-126); Anion Gap 10.1 mEq/L (5-15); Aspartate Amino Transferase 33 U/L (14-36); Bilirubin,Total 0.6 mg/dl (0.2-1.3); Blood Urea Nitrogen 11 mg/dl (7-17); Calcium 9.5 mg/dl (8.4-10.2); Carbon Dioxide 29 mmol/L (22.0-30.0); Chloride 102 mmol/L (98-107); Creatinine Clearance Estimated 161 mL/min (50-200); Estimated Glomerular Filt Rate 103 ml/min (>60); GFR (African American) 124 ML/MIN (>60); Globulin 3.1 g/dL (1.3-3.2); Glucose 163 mg/dl (74-100); Lipase 91 U/L (23-300); Potassium 4.1 mmoL/L (3.5-5.1); Sodium 137 mmol/L (136-145); Total Protein,Serum 7.4 g/dl (6.3-8.2)
[2021-07-08 23:48] LABS: Appearance,Urine CLEAR (Clear); Bilirubin,Urine Negative (Negative); Blood, Urine TRACE-I (Negative); Color,Urine YELLOW (Yellow); Glucose,Urine (UA) Negative (Negative); Ketones,Urine Negative (Negative); Leukocyte Esterase,Urine TRACE (Negative); Nitrate,Urine Negative (Negative); Protein,Urine Negative (Negative); Urobilinogen,Urine 0.2 EU/dl (0.2)
[2021-07-08 23:58] LABS: Barbiturates Screen,Urine Negative ng/ml (<200)
[2021-07-08 23:59] LABS: Amphetamine/Metha Screen,Urine Negative ng/ml (<1000); Benzodiazepines Screen,Urine Negative ng/ml (<200)
[2021-07-09] VITALS (14 sets, daily range): BP systolic 130–181; BP diastolic 68–95; PULSE 69–110; RESP 13–20; TEMP 36.7–37.3; O2SAT 92–98; BMI 39.3
[2021-07-09] LABS: Cannabinoid Screen,Urine Negative ng/ml (<50)
[2021-07-09 00:01] LABS: Cocaine Screen,Urine Negative ng/ml (<300); Methadone Screen,Urine Negative ng/ml (<300)
[2021-07-09 00:02] LABS: Opiate Screen,Urine Negative ng/ml (<300)
[2021-07-09 00:03] LABS: Phencyclidine Screen,Urine Negative ng/ml (<25)
[2021-07-09 00:04] LABS: Erythrocyte Sedimentation Rate 19 mm/hr (0-30)
[2021-07-09 00:07] LABS: Procalcitonin 0.059 ng/mL (0.0-2.0)
[2021-07-09 01:29] LABS: Coronavirus 19, PCR Not Detected (NotDetected); Influenza A, PCR Not Detected (NotDetected); Influenza B, PCR Not Detected (NotDetected)
--- NOTE | 2021-07-09 01:47 | PC.NURSE ---
report called to Yasmin escobar
[2021-07-09 01:59] LABS: Troponin I < 0.01 ng/ml (0.00-0.034)
--- NOTE | 2021-07-09 02:00 | PC.NURSE ---
patient up to floor via stretcher @ this time.
--- NOTE | 2021-07-09 04:42 | ECG_ITS ---
APPROVED REPORT Exam: Resting ECG HR:102 bpm ECG Measurements Heart Rate 102 AXES IL 170 P 74 QRSd 76 QRS -1 QT 348 T 48 QTc 453 Conclusion Sinus tachycardia Low voltage QRS Late R wave progression Abnormal ECG Electronically signed by : Onur Canchola MD 07/10/2021 09:07:53
[2021-07-09 04:53] LABS: Troponin I < 0.01 ng/ml (0.00-0.034)
[2021-07-09 07:01] LABS: POC Glucose,Bedside 159 (70-110)
--- NOTE | 2021-07-09 08:27 | HMH.HP ---
*Admission Date: 07/09/21 *Chief complaint: New onset dysarthria and elevated blood pressure *History of present illness: 60-year-old white female with history of stroke with right-sided weakness several years ago, she is extremely debilitated at home from her multiple medical problems, obesity and her stroke disease. EMS was called because she has had trouble speaking over the past 24 hours. She has become extremely dysarthric, and has had trouble thinking of what to say and notes that her speech has been choppy. She was brought to the ER, and work-up including CT scan, labs, etc. were unremarkable except for trace leukocyte esterase and elevated blood pressure in the 180s. She was admitted for further observation, treatment of urinary tract infection and further delineation of neurologic deficits. EMS reported to the ER that she and her were having quite an intense argument when they arrived. The patient tells me that they have been arguing quite a bit at home and her tells her that everything is always my fault. She is extremely tearful about the situation. [facility] History I have reviewed the patient's past medical history: Yes Medical History: Reports:: Anxiety, Chronic Obstructive Pulmonary Disease (COPD), Cerebrovascular Accident, Diabetes Mellitus Type 2, Hyperlipidemia, Hypertension *Have you ever received a pneumonia vaccine?: Yes *Have you received a flu vaccine this season?: No Laterality Cases: Bilateral: Tonsillectomy Other Surgeries: Yes: Cholecystectomy, Colonoscopy, Dilation and Curettage, Tubal Ligation Amputation: No Fractures: Yes - *Social History Last grade of school completed: 11th or 12th Smoking Status: Current every day smoker Tobacco Type: cigarettes # Packs/Day (cigarettes): 2 Alcohol Intake: never *Occupational Status:: unemployed, disabled Household Members: spouse *Travel in the last 8 weeks: None - Psychiatric History Pschychiatric History:: Reports:: Anxiety Family Hx:: No significant family history Review of Systems - Review of Systems Review of systems:: pertinent systems reviewed and negative unless documented below - *Neurologic Reports abnormal speech, Reports localized weakness, Reports tingling/numbness/burning sensations, Reports tingling, Reports weakness, Denies headache(s), Denies seizure-like activity Meds Home Medications Medication Instructions Recorded Confirmed Type albuterol sulfate 90 mcg/actuation 1 inh INHALATION DAILY g 06/06/21 07/09/21 History aerosol inhaler atorvastatin 40 mg tablet 40 mg PO HS tab 06/06/21 07/09/21 History baclofen 10 mg tablet 10 mg PO BID tab 06/06/21 07/09/21 History budesonide-formoterol HFA 160 2 inh INHALATION Q4-6H g 06/06/21 07/09/21 History mcg-4.5 mcg/actuation aerosol inhaler esomeprazole magnesium 40 mg 40 mg PO DAILY cap 06/06/21 07/09/21 History capsule,delayed release furosemide 20 mg tablet 20 mg PO DAILY tab 06/06/21 07/09/21 History gabapentin 400 mg capsule 400 mg PO DAILY cap 06/06/21 07/09/21 History hydrochlorothiazide 25 mg tablet 25 mg PO DAILY tab 06/06/21 07/09/21 History insulin detemir U-100 100 unit/mL 5 unit SQ DAILY ml 06/06/21 07/09/21 History (3 mL) subcutaneous pen lisinopril 20 mg tablet 20 mg PO DAILY tab 06/06/21 07/09/21 History metoprolol succinate 50 mg 50 mg PO DAILY tab 06/06/21 07/09/21 History tablet,extended release 24 hr sertraline 100 mg tablet 100 mg PO DAILY tab 06/06/21 07/09/21 History Allergies Allergy/AdvReac Type Severity Reaction Status Date / Time Penicillins Allergy Intermediate WEAKNESS, Verified 06/06/21 15:25 DIAPHORESIS, INCREASED HR acetaminophen [From Vicodin] AdvReac Unknown MAKES SKIN Verified 06/06/21 15:25 CRAWL hydrocodone [From Vicodin] AdvReac Unknown MAKES SKIN Verified 06/06/21 15:25 CRAWL Exam Vital signs and Labs for Last 24 Hours: Temp Pulse Resp BP Pulse Ox 98.8 F 101 H 18 160
[2021-07-09 09:50] LABS: Chloride 104 mmol/L (98-107); Potassium 3.8 mmoL/L (3.5-5.1); Sodium 137 mmol/L (136-145)
[2021-07-09 09:53] LABS: Anion Gap 7.8 mEq/L (5-15); Blood Urea Nitrogen 10 mg/dl (7-17); Carbon Dioxide 29 mmol/L (22.0-30.0); Creatinine Clearance Estimated 156 mL/min (50-200); Estimated Glomerular Filt Rate 103 ml/min (>60); GFR (African American) 124 ML/MIN (>60)
[2021-07-09 09:54] LABS: Glucose 182 mg/dl (74-100)
[2021-07-09 10:10] LABS: Troponin I < 0.01 ng/ml (0.00-0.034)
[2021-07-09 10:16] LABS: Basophils # 0.1 K/mm3 (0-0.2); Eosinophils # 0.1 K/mm3 (0.0-0.4); Eosinophils % 1.2 % (0.1-12.0); Hematocrit 42.5 % (37.0-47.0); Hemoglobin 14.3 g/dL (12.2-16.2); Mean Corpuscular HGB Conc 33.6 g/dL (31.8-35.4); Mean Corpuscular Hemoglobin 31.8 pg (27.0-31.2); Mean Corpuscular Volume 94.7 fl (81-99); Mean Platelet Volume 9.4 fl (7.4-10.4); Monocytes # 0.3 K/mm3 (0.1-1.0); Monocytes % 3.7 % (1.7-9.3); Neutrophils # 6.6 K/mm3 (1.8-7.8); Neutrophils % 72.1 % (37.0-80.0); Platelet Count 205 K/mm3 (142-424); Red Blood Count 4.49 M/mm3 (4.20-5.40); Red Cell Distribution Width 14.5 % (11.5-17.5); White Blood Count 9.2 K/mm3 (4.8-10.8)
[2021-07-09 11:23] LABS: POC Glucose,Bedside 166 (70-110)
--- NOTE | 2021-07-09 11:35 | HMH.PTEV ---
Physical Therapy Evaluation Rehab PT IP Evaluation Start: 07/09/21 08:26 Freq: ONCE Status: Active Protocol: Document 07/09/21 11:28 JOSE (Rec: 07/09/21 11:35 IVANIABLAKELIDIA [id number]) Subjective/History History History Pt admitted to [facility] as 60 yo female w/UTI, hypertension, and left sided weakness Subjective Subjective Pt reports severe back pain this am, caused by 'herniated disc', and 'spasms'. Pt reports previous stroke causeing left sided weakness/ hemiparesis, uses hemiwalker on right at home. Rehab PT IP Eval Objective Appearance Patient Behavior Appropriate,Anxious,Impulsive Patient Orientation Person,Place,Time,Birthday Difficulty following instructions moderate Speech Pattern Appropriate,Slurred Ambulation Patient Able to Ambulate No Balance Ability to Arise Unable Sitting Balance Leans or slides in chair Dynamic Sitting Balance Ability Fair Transfers Bed Transfer Ability Maximum x 1 (75% assist) Pain Lower Back Pain Intensity 8 ROM RUE PT ROM Status WFL RLE PT ROM Status WFL LUE PT ROM Status ABN Abnormal ROM Comment limited d/t mm tone LLE PT ROM Status ABN Abnormal ROM Comment limited d/t mm tone MMT All Extremities PT MMT WNL Rehab PT IP prob,goals,plan Problems Date of Evaluation: 07/09/21 PT IP Problems Bed Mobility,Transfers,Gait, Balance,Self care,Safety Rehab Potential Rehab Potential Fair Plan PT Intervention Plan Bed Mobility,Transfers,Gait, Balance,Self care,Safety PT Plan Frequency BID Duration LOS Discharge Goals Bed Transfer Ability Moderate x 1 (50% assist) Sit to Stand Chair Transfer Ability Maximum x 1 (75% assist) Ambulation Assistive Device Hemiwalker Ambulation Distance (feet) 5 Discharge Plan PT Discharge Plan Pt to D/C to rehab facility or SNF to continue work on strenthenging, balance, and gait to allow for eventual safe return to home G -code Required No Eval Complexity Eval Charge Codes 46084 - Moderate Complexity PHYSICIAN CERTIFIC
--- NOTE | 2021-07-09 13:05 | P.CONPHA_ITS ---
[facility] Pharmacy VTE Monitoring - Patient Demographics Admission date: 07/09/21 Report Date: 07/09/21 Time: 13:05 Allergies/Adverse Reactions: Patient Allergies Penicillins Allergy (Intermediate, Verified 06/06/21 15:25) WEAKNESS, DIAPHORESIS, INCREASED HR acetaminophen [From Vicodin] Adverse Reaction (Unknown, Verified 06/06/21 15:25) MAKES SKIN CRAWL hydrocodone [From Vicodin] Adverse Reaction (Unknown, Verified 06/06/21 15:25) MAKES SKIN CRAWL Height: 1.57 m Weight: 96.933 kg Patient Problems: Current Active Problems CVA (cerebral vascular accident) (Acute) Hyperglycemia (Acute) Obesity (Acute) UTI (urinary tract infection) (Acute) Weakness of one side of body (Acute) Hypertension (Acute) - VTE Risk Labs: VTE Related Lab Results Hgb 14.3 g/dL (12.2-16.2) 07/09/21 09:27 Hct 42.5 % (37.0-47.0) 07/09/21 09:27 Plt Count 205 K/mm3 (142-424) 07/09/21 09:27 BUN 10 mg/dl (7-17) 07/09/21 09:27 Creatinine 0.60 mg/dl (0.52-1.04) 07/09/21 09:27 Estimated Creat Clear 156 mL/min (50-200) 07/09/21 09:27 - Prophylaxis Types of VTE Prophylaxis: TEDS Knee High Location of Applied Device: Bilateral Lower Extremeties (TUSHAR HOSE ORDERED)
[2021-07-09 16:49] LABS: POC Glucose,Bedside 171 (70-110)
--- NOTE | 2021-07-09 19:54 | PC.NURSE ---
Patient c/o chronic back pain and requesting medication. Order on MAR for tylenol but med is listed as adverse reaction. When questioned, patient states she takes medication at home without any problems. Tylenol administered per patient request.
--- NOTE | 2021-07-09 21:33 | PC.NURSE ---
Helped put on bed almendarez
[2021-07-09 23:54] LABS: POC Glucose,Bedside 169 (70-110)
[2021-07-10] VITALS: BP 156/76; PULSE 83; PULSE 90; RESP 16; TEMP 37.4; O2SAT 95
[2021-07-10 04:00] VITALS: BP 149/78; PULSE 80; RESP 16; TEMP 36.9; O2SAT 96
[2021-07-10 05:21] VITALS: BMI 39.3
--- NOTE | 2021-07-10 06:57 | PC.NURSE ---
Patient rested well during night. VSS. C/o back pain treated with apap, tolerated well. Alert and oriented x4. Speech clear and appropriate. SR on monitor. Noted wheezes throughout. IVF infusing. Patient incontinent of urine twice this shift. Turned as patient tolerated for pressure relief. Pleasant and cooperative with cares.
[2021-07-10 07:02] LABS: Basophils # 0.1 K/mm3 (0-0.2); Eosinophils # 0.1 K/mm3 (0.0-0.4); Eosinophils % 1.3 % (0.1-12.0); Hematocrit 42.9 % (37.0-47.0); Hemoglobin 14.2 g/dL (12.2-16.2); Lymphocytes # 2.6 K/mm3 (0.7-4.5); Lymphocytes % 24.7 % (10-50); Mean Corpuscular HGB Conc 33.2 g/dL (31.8-35.4); Mean Corpuscular Hemoglobin 31.7 pg (27.0-31.2); Mean Corpuscular Volume 95.6 fl (81-99); Mean Platelet Volume 9.8 fl (7.4-10.4); Monocytes # 0.4 K/mm3 (0.1-1.0); Monocytes % 3.3 % (1.7-9.3); Neutrophils # 7.4 K/mm3 (1.8-7.8); Neutrophils % 69.7 % (37.0-80.0); Platelet Count 222 K/mm3 (142-424); Red Blood Count 4.49 M/mm3 (4.20-5.40); Red Cell Distribution Width 14.5 % (11.5-17.5); White Blood Count 10.5 K/mm3 (4.8-10.8)
[2021-07-10 07:04] LABS: Chloride 104 mmol/L (98-107); Sodium 137 mmol/L (136-145)
[2021-07-10 07:06] LABS: Alanine Aminotransferase 26 U/L (12-78); Aspartate Amino Transferase 30 U/L (14-36); Blood Urea Nitrogen 10 mg/dl (7-17); Creatinine Clearance Estimated 188 mL/min (50-200); Estimated Glomerular Filt Rate 127 ml/min (>60); GFR (African American) 153 ML/MIN (>60); Potassium 3.7 mmoL/L (3.5-5.1)
[2021-07-10 07:07] LABS: Alkaline Phosphatase 141 U/L (38-126); Anion Gap 10.7 mEq/L (5-15); Bilirubin,Total 0.8 mg/dl (0.2-1.3); Carbon Dioxide 26 mmol/L (22.0-30.0)
[2021-07-10 07:09] LABS: Albumin Level 3.7 g/dl (3.5-5.0); Albumin/Globulin Ratio 1.2 (1.1-1.8); Calcium 8.7 mg/dl (8.4-10.2); Glucose 150 mg/dl (74-100); Total Protein,Serum 6.7 g/dl (6.3-8.2)
--- NOTE | 2021-07-10 07:16 | HMH.ACPN2 ---
Internal Medicine - PN: Subj *Date: 07/10/21 *Time: 07:16 Interval history: Patient feels a little better overnight, notes that her speech is somewhat improved. Physical therapy reviewed from yesterday accomplished. Appreciate input. Exam Vital signs and Labs for Last 24 Hours: Temp Pulse Resp BP Pulse Ox 98.4 F 80 16 149/78 H 96 07/10/21 04:00 07/10/21 04:00 07/10/21 04:00 07/10/21 04:00 07/10/21 04:00 Laboratory Results - last 24 hr 07/09/21 09:27: Sodium 137, Potassium 3.8, Chloride 104, Carbon Dioxide 29, Anion Gap 7.8, BUN 10, Creatinine 0.60, Estimated Creat Clear 156, Estimated GFR 103, Est GFR ( Amer) 124, Glucose 182 H, Calcium 9.0, Troponin I < 0.01 07/09/21 09:27: WBC 9.2, RBC 4.49, Hgb 14.3, Hct 42.5, MCV 94.7, MCH 31.8 H, MCHC 33.6, RDW 14.5, Plt Count 205, MPV 9.4, Neut % (Auto) 72.1, Lymph % (Auto) 22.0, [place] % (Auto) 3.7, Eos % (Auto) 1.2, Baso % (Auto) 1.0, Neut # (Auto) 6.6, Lymph # (Auto) 2.0, [place] # (Auto) 0.3, Eos # (Auto) 0.1, Baso # (Auto) 0.1 07/09/21 10:52: POC Glucose 166 H 07/09/21 16:29: POC Glucose 171 H 07/09/21 21:27: POC Glucose 169 H 07/10/21 06:19: WBC 10.5, RBC 4.49, Hgb 14.2, Hct 42.9, MCV 95.6, MCH 31.7 H, MCHC 33.2, RDW 14.5, Plt Count 222, MPV 9.8, Neut % (Auto) 69.7, Lymph % (Auto) 24.7, [place] % (Auto) 3.3, Eos % (Auto) 1.3, Baso % (Auto) 1.0, Neut # (Auto) 7.4, Lymph # (Auto) 2.6, [place] # (Auto) 0.4, Eos # (Auto) 0.1, Baso # (Auto) 0.1 07/10/21 06:19: Sodium 137, Potassium 3.7, Chloride 104, Carbon Dioxide 26, Anion Gap 10.7, BUN 10, Creatinine 0.50 L, Estimated Creat Clear 188, Estimated GFR 127, Est GFR ( Amer) 153 D, Glucose 150 H, Calcium 8.7, Total Bilirubin 0.8, AST 30, ALT 26 D, Alkaline Phosphatase 141 H, Total Protein 6.7, Albumin 3.7 D, Globulin 3.0, Albumin/Globulin Ratio 1.2 I & O for Last 24 hours: Intake & Output 07/07/21 07/08/21 07/09/21 07/10/21 11:59 11:59 11:59 11:59 Intake Total 360 / 360 1486 / 1486 Output Total 1425 / 1425 Balance 360 / 360 61 / 61 Weight 213 lb 11.2 oz 213 lb 14.4 oz Microbiology Reports for the Last 24 Hours: Microbiology 07/08/21 23:37 Urine,Catheterized Urine Culture - Preliminary NO GROWTH AFTER 24 HOURS Narrative: Patient is pleasant, alert, oriented. Speech is somewhat less dysarthric, has trouble starting sentences. Dense right hemiparesis as previously noted, facial nerves look good. Heart rate regular, lungs clear. Abdomen soft, no significant edema except in her post stroke side. Assessment and Plan (1) CVA (cerebral vascular accident) Status: Acute Qualifiers: CVA mechanism: unspecified Qualified Code(s): I63.9 - Cerebral infarction, unspecified Category: Medical Code(s): I63.9 - Cerebral infarction, unspecified (2) Hyperglycemia Status: Acute Category: Medical Code(s): R73.9 - Hyperglycemia, unspecified (3) Hypertension Status: Acute Qualifiers: Hypertension type: primary hypertension Qualified Code(s): I10 - Essential (primary) hypertension Category: Medical Code(s): I10 - Essential (primary) hypertension (4) Obesity Status: Acute Qualifiers: Obesity type: due to excess calories Obesity classification: adult class 3 (BMI >= 40) Serious obesity comorbidity presence: with serious comorbidity Body mass index: BMI 40.0-44.9 Qualified Code(s): E66.01 - Morbid (severe) obesity due to excess calories; Z68.41 - Body mass index [BMI] 40.0-44.9, adult Category: Medical Code(s): E66.9 - Obesity, unspecified (5) UTI (urinary tract infection) Status: Acute Qualifiers: Urinary tract infection type: site unspecified Hematuria presence: without hematuria Qualified Code(s): N39.0 - Urinary tract infection, site not specified Category: Medical Code(s): N39.0 - Urinary tract infection, site not specified - Assessment and plan all Dx Assessment and Plan for all problems::
[2021-07-10 08:00] VITALS: PULSE 80; O2SAT 96
[2021-07-10 10:48] VITALS: BMI 39.3
[2021-07-10 11:29] LABS: POC Glucose,Bedside 160 (70-110)
[2021-07-10 12:00] VITALS: BP 149/67; PULSE 64; PULSE 75; RESP 18; TEMP 37; O2SAT 95
[2021-07-10 12:05] LABS: POC Glucose,Bedside 155 (70-110)
[2021-07-10 16:00] VITALS: BP 143/71; PULSE 71; RESP 18; TEMP 36.9; O2SAT 94
[2021-07-10 16:21] LABS: POC Glucose,Bedside 148 (70-110)
--- NOTE | 2021-07-10 18:48 | PC.NURSE ---
PT IS RESTING IN BED. TURNED AND REPOSITIONED FREQUENTLY. PT HAS BEEN INCONTINENT THIS SHIFT. EATING AND DRINKING WELL. LUNG SOUNDS HAVE SCATTERED WHEEZES. ABDOMEN SOFT/NON TENDER WITH ACTIVE BOWEL SOUNDS. LEFT SIDED WEAKNESS FROM CVA IN THE PAST. WILL CONTINUE TO MONITOR.
[2021-07-10 19:54] VITALS: BP 139/77; PULSE 75; RESP 19; TEMP 36.9; O2SAT 95
[2021-07-10 22:49] LABS: POC Glucose,Bedside 238 (70-110)
[2021-07-11] VITALS (7 sets, daily range): BP systolic 132–140; BP diastolic 66–92; PULSE 73–89; RESP 17–20; TEMP 36.6–37.1; O2SAT 93–98; BMI 39.3
[2021-07-11 06:54] LABS: POC Glucose,Bedside 139 (70-110)
--- NOTE | 2021-07-11 08:01 | MR_ITS ---
PROCEDURE: MR HEAD/BRAIN WO CON CLINICAL INDICATION: STROKE FOLLOW-UP COMPARISON: CT CT HEAD/BRAIN WO CON from 07/09/2021 TECHNIQUE: Routine multiplanar multi echo sequences are performed without gadolinium enhancement. FINDINGS: Study is limited technically due to excessive patient motion artifact on every sequence. Diffusion images demonstrates scattered small areas of the restricted diffusion in the left occipital lobe and the left parietal lobe anteriorly. These areas involve both kamara and white matter consistent with scattered small areas of infarction. This pattern would suggest an embolic phenomenon. No evidence of hemorrhage. There are encephalomalacia changes in the right parietal lobe, parietal frontal junction, and parietal occipital junction. Asymmetric prominence of the right lateral ventricle is noted consistent with underlying volume loss. No midline shift or mass effect is apparent. The pituitary, optic chiasm, corpus callosum, and craniocervical junction are unremarkable aside from thinning of the body of the corpus callosum. IMPRESSION: Numerous small areas of restricted diffusion in the left occipital lobe and left parietal lobe consistent with numerous small areas of infarction. This pattern suggest an embolic phenomenon. No underlying hemorrhage evident. Atrophy with periventricular ischemic gliotic changes and areas of encephalomalacia in the right parietal lobe. Limited exam secondary to patient motion artifact. Dictated by: Edison Severino MD 07/11/2021 12:20 Edison Severino MD in [place] 07/11/2021 12:20
--- NOTE | 2021-07-11 08:04 | HMH.DCSUM ---
General - General Admission date:: 07/09/21 Discharge date: 07/11/21 HPI HPI: 60-year-old white female with history of stroke with right-sided weakness several years ago, she is extremely debilitated at home from her multiple medical problems, obesity and her stroke disease. EMS was called because she has had trouble speaking over the past 24 hours. She has become extremely dysarthric, and has had trouble thinking of what to say and notes that her speech has been choppy. She was brought to the ER, and work-up including CT scan, labs, etc. were unremarkable except for trace leukocyte esterase and elevated blood pressure in the 180s. She was admitted for further observation, treatment of urinary tract infection and further delineation of neurologic deficits. EMS reported to the ER that she and her were having quite an intense argument when they arrived. The patient tells me that they have been arguing quite a bit at home and her tells her that everything is always my fault. She is extremely tearful about the situation. Hospital Course Hospital Course: Patient was admitted. Found to have significant hypertensive urgency's, regular medications were started as well as amlodipine added for her blood pressure over the next couple of days. She responded very nicely to this. Speech dysarthria continued but slightly improved with blood pressure treatment Given her significant neuromuscular deficits PT evaluated her and felt that she would benefit from a skilled care stay for intensive rehabilitation. Bed was found at local facility and she will be transferred there today. She is somewhat emotionally upset about this but does understand that she needs to do this so that she can facilitate going back home when able to. Patient will need a PT/OT evaluation. Medications will be as noted on the reconciliation form. She will also need a speech therapy evaluation. Please note that she will need a BMP and a CBC in 3 days. She will also be on cefdinir twice daily for 7 days. Diagnosis of UTI was made on admission. Culture is not back at this point. Objective Vital signs: Temp Pulse Resp BP Pulse Ox 98.8 F 89 18 139/92 H 93 L 07/11/21 07:44 07/11/21 07:44 07/11/21 07:44 07/11/21 07:44 07/11/21 07:44 no acute distress, obese - *Routine HEENT Exam Head: Present: normocephalic Eye: Present: EOMI, PERRL ENT: Present: mucous membranes moist - *Routine Neck Exam Present: supple - *Routine Respiratory Exam Present: CTA bilaterally - *Routine Cardiovascular Exam Present: RRR - *Routine Abdominal Exam Present: soft, normoactive bowel sounds. Absent: tenderness - *Routine Extremities Exam Absent: cyanosis, clubbing, edema - *Routine Skin Exam Present: warm. Absent: rash - *Routine Neurological Exam Present: alert, facial asymmetry Dense right hemiparesis as previously noted - Detailed Eye Exam Eyelids: Bilateral normal inspection Results Labs on day of discharge: Labs from last 24 hours 07/11/21 07/10/21 07/10/21 05:48 21:14 15:39 POC Glucose 139 H 238 H 148 H 07/10/21 07/10/21 11:18 06:29 POC Glucose 160 H 155 H Preliminary micro results at discharge 07/08/21 23:37 Urine Culture - Preliminary Urine,Catheterized DS: Diagnosis - Discharge Diagnosis (1) CVA (cerebral vascular accident) Status: Acute (2) Hyperglycemia Status: Chronic (3) Hypertension Status: Chronic (4) Obesity Status: Acute (5) UTI (urinary tract infection) Status: Resolved Discharge Plan - Patient Discharge Instructions ACTIVITY: Continue current activity DIET: continue same diet Patient Instructions: DI for Stroke-Ischemic, DI for High Blood Pressure, DI for Urinary Tract Infection (UTI), DI for Hyperglycemia -- Adult - Follow up Plan Disposition: [facility] Condition at discharge:: Improved Home Medications: Home Medications
--- NOTE | 2021-07-11 10:16 | HMH.OTEV ---
OT Inpatient Evaluation Rehab OT IP Evaluation Start: 07/09/21 08:26 Freq: ONCE Status: Complete Protocol: Document 07/11/21 10:05 GUILLERMO (Rec: 07/11/21 10:13 GUILLERMO [id number]) Rehab OT IP Assessment Subjective History *Admission Date: 07/09/21 *Chief complaint: New onset dysarthria and elevated blood pressure *History of present illness: 60-year-old white female with history of stroke with right- sided weakness several years ago, she is extremely debilitated at home from her multiple medical problems, obesity and her stroke disease . EMS was called because she has had trouble speaking over the past 24 hours. She has become extremely dysarthric, and has had trouble thinking of what to say and notes that her speech has been choppy. She was brought to the ER, and work-up including CT scan, labs, etc. were unremarkable except for trace leukocyte esterase and elevated blood pressure in the 180s. She was admitted for further observation, treatment of urinary tract infection and further delineation of neurologic deficits. EMS reported to the ER that she and her were having quite an intense argument when they arrived. The patient tells me that they have been arguing quite a bit at home and her tells her that everything is always my fault. She is extremely tearful about the situation. [facility] History I have reviewed the patient's past medical history: Yes Medical History: Reports:: Anxiety, Chronic Obstructive
[2021-07-11 12:19] LABS: POC Glucose,Bedside 183 (70-110)
--- NOTE | 2021-07-11 14:18 | SW/DCPLANNER ---
Addendum entered by Fanny Quiroz 07/13/21 14:00: RECEIVED A CALL FROM ROQUE AT [facility] AND INSURANCE HAS GIVEN AN AUTHORIZATION FOR PATIENT TO DISCHARGE THERE TODAY... WE DID HAVE OUR MENTAL HEALTH PILATES INSTRUCTOR, MYA FRITZ TO CONSULT ON THIS PATIENT AND SHE FEELS PATIENT IS HAVING SOME ISSUES WITH PBA AND DEPRESSION R/T A STROKE. I EXPLAINED THIS TO ROQUE AND TOLD HER THAT I THOUGHT HER INAPPROPRIATE CHARACTERISTICS SHE IS EXHIBITING IS TRULY R/T TO HER STROKE AND SO DOES HER MD THAT HAS IDENTIFIED IN HIS D/C SUMMARY BUT IF IT IS FELT THAT SHE NEEDS A LEVEL 11 PASSAR TO MAKE THAT CONTACT TO ENSURE PATIENT GETS THE SERVICES SHE NEEDS.. Addendum entered by Fanny Quiroz 07/13/21 06:49: [facility] WITH HER INSURANCE, WAITING TO HEAR BACK.... Addendum entered by Fanny Quiroz 07/12/21 12:57: [facility] STATING PATIENT HAS A $10,000 OUT OF POCKET WITH HER [employer] MCR... THEY CAN NOT TAKE HER... Addendum entered by Fanny Quiroz 07/12/21 07:47: [facility] DOES NOT HAVE A BED FOR THIS PATIENT, I DID SEND PATIENT INFORMATION TO [facility] AND WAITING TO HEAR BACK THIS MORNING, PATIENT IS MEDICALLY READY FOR A DISPOSITION BUT AT THIS TIME A BED HAS NOT BEEN OBTAINED... Addendum entered by Fanny Quiroz 07/11/21 14:32: [facility] DOES NOT HAVE A CONTRACT WITH [employer] BUT THEY WILL DO A CONTRACTUAL AGREEMENT ON OCCASION SO I HAVE SENT IT THERE WITH HOMES THEY CAN TAKE HER.. WAITING TO HEAR BACK FROM ONE OF THE PLACES.. Original Note: SENT REFERRAL TO [facility] TODAY TO SEE IF THEY HAVE BED FOR HER...PATIENT WAS VERY UPSET TODAY AND CRIED AND SCREAM SHE DIDN'T WANT TO GO....I DID SEND IT THERE BUT HAVE NOT HEARD FROM THEM YET... PATIENT HAS A [employer]/MCR AND LOCALLY THEY EITHER DON'T HAVE A BED OR DON'T HAVE A CONTRACT WITH HER INSURANCE..
[2021-07-11 15:23] LABS: POC Glucose,Bedside 235 (70-110)
--- NOTE | 2021-07-11 18:58 | PC.NURSE ---
No acute changes this shift. Pt more calm this afternoon. Awaiting disposition plans.
[2021-07-11 21:07] LABS: POC Glucose,Bedside 230 (70-110)
[2021-07-12] VITALS: BP 152/98; PULSE 79; RESP 18; TEMP 37.2; O2SAT 93
[2021-07-12 04:00] VITALS: BP 132/78; PULSE 78; RESP 18; TEMP 37.3; O2SAT 96
[2021-07-12 05:10] VITALS: BMI 38.3
[2021-07-12 06:29] LABS: POC Glucose,Bedside 162 (70-110)
[2021-07-12 08:00] VITALS: BP 148/87; PULSE 77; RESP 20; TEMP 36.9; O2SAT 93
--- NOTE | 2021-07-12 08:10 | HMH.ACPN2 ---
Internal Medicine - PN: Subj *Date: 07/12/21 *Time: 08:10 Interval history: Plan to group home admission did not materialize because of bed availability and patient's insurance authorization bureaucratic proceedings. She is unchanged. Very tearful, but is eating breakfast, and is cooperative with the nursing staff and did participate somewhat in PT yesterday. Exam Vital signs and Labs for Last 24 Hours: Temp Pulse Resp BP Pulse Ox 99.2 F 78 18 132/78 96 07/12/21 04:00 07/12/21 04:00 07/12/21 04:00 07/12/21 04:00 07/12/21 04:00 Laboratory Results - last 24 hr 07/11/21 12:10: POC Glucose 183 H 07/11/21 15:16: POC Glucose 235 H 07/11/21 20:16: POC Glucose 230 H 07/12/21 06:22: POC Glucose 162 H I & O for Last 24 hours: Intake & Output 07/09/21 07/10/21 07/11/21 07/12/21 11:59 11:59 11:59 11:59 Intake Total 360 / 360 2026 / 2026 600 / 600 600 / 600 Output Total 1425 / 1425 0 / 0 Balance 360 / 360 601 / 601 600 / 600 600 / 600 Weight 213 lb 11.2 oz 213 lb 13.574 oz 213 lb 13.574 oz 208 lb 7 oz Microbiology Reports for the Last 24 Hours: Microbiology 07/08/21 23:37 Urine,Catheterized Urine Culture - Preliminary Narrative: Tearful, able to minimally move about in her bed. Cardiopulmonary exam unchanged. Neurologic deficit as previously noted. Assessment and Plan (1) CVA (cerebral vascular accident) Status: Acute Qualifiers: CVA mechanism: unspecified Qualified Code(s): I63.9 - Cerebral infarction, unspecified Category: Medical Code(s): I63.9 - Cerebral infarction, unspecified (2) Hyperglycemia Status: Chronic Category: Medical Code(s): R73.9 - Hyperglycemia, unspecified (3) Hypertension Status: Chronic Qualifiers: Hypertension type: primary hypertension Qualified Code(s): I10 - Essential (primary) hypertension Category: Medical Code(s): I10 - Essential (primary) hypertension (4) Obesity Status: Acute Qualifiers: Obesity type: due to excess calories Obesity classification: adult class 3 (BMI >= 40) Serious obesity comorbidity presence: with serious comorbidity Body mass index: BMI 40.0-44.9 Qualified Code(s): E66.01 - Morbid (severe) obesity due to excess calories; Z68.41 - Body mass index [BMI] 40.0-44.9, adult Category: Medical Code(s): E66.9 - Obesity, unspecified (5) UTI (urinary tract infection) Status: Resolved Qualifiers: Urinary tract infection type: site unspecified Hematuria presence: without hematuria Qualified Code(s): N39.0 - Urinary tract infection, site not specified Category: Medical Code(s): N39.0 - Urinary tract infection, site not specified - Assessment and plan all Dx Assessment and Plan for all problems:: No changes in plans. Blood pressure under good control. We will adjust date of discharge on previous summary, otherwise orders, plan remain intact.
[2021-07-12 11:53] VITALS: BP 139/70; PULSE 78; RESP 18; TEMP 36.8; O2SAT 96
--- NOTE | 2021-07-12 14:46 | HMH.ACPN ---
Internal Medicine - PN: Subj *Date: 07/12/21 *Time: 14:46 Exam Vital signs and Labs for Last 24 Hours: Temp Pulse Resp BP Pulse Ox 98.3 F 78 18 139/70 96 07/12/21 11:53 07/12/21 11:53 07/12/21 11:53 07/12/21 11:53 07/12/21 11:53 Laboratory Results - last 24 hr 07/11/21 15:16: POC Glucose 235 H 07/11/21 20:16: POC Glucose 230 H 07/12/21 06:22: POC Glucose 162 H I & O for Last 24 hours: Intake & Output 07/09/21 07/10/21 07/11/21 07/12/21 23:59 23:59 23:59 23:59 Intake Total 480 / 480 2146 / 2146 960 / 960 600 / 600 Output Total 1425 / 1425 0 / 0 Balance -945 / -945 2146 / 2146 960 / 960 600 / 600 Weight 96.933 kg 97 kg 97 kg 94.546 kg Assessment and Plan (1) CVA (cerebral vascular accident) Status: Acute Qualifiers: CVA mechanism: unspecified Qualified Code(s): I63.9 - Cerebral infarction, unspecified Category: Medical Code(s): I63.9 - Cerebral infarction, unspecified (2) Hyperglycemia Status: Chronic Category: Medical Code(s): R73.9 - Hyperglycemia, unspecified (3) Hypertension Status: Chronic Qualifiers: Hypertension type: primary hypertension Qualified Code(s): I10 - Essential (primary) hypertension Category: Medical Code(s): I10 - Essential (primary) hypertension (4) Obesity Status: Acute Qualifiers: Obesity type: due to excess calories Obesity classification: adult class 3 (BMI >= 40) Serious obesity comorbidity presence: with serious comorbidity Body mass index: BMI 40.0-44.9 Qualified Code(s): E66.01 - Morbid (severe) obesity due to excess calories; Z68.41 - Body mass index [BMI] 40.0-44.9, adult Category: Medical Code(s): E66.9 - Obesity, unspecified (5) UTI (urinary tract infection) Status: Resolved Qualifiers: Urinary tract infection type: site unspecified Hematuria presence: without hematuria Qualified Code(s): N39.0 - Urinary tract infection, site not specified Category: Medical Code(s): N39.0 - Urinary tract infection, site not specified The patient's infection will respond to the chosen ABx?: Yes Is the patient receiving the right drug, dose, and route?: Yes Could a more targeted ABx be ordered?: No (PATIENT CURRENTLY AFEBRILE)
[2021-07-12 16:00] VITALS: BP 148/79; PULSE 77; RESP 20; TEMP 36.8; O2SAT 96
[2021-07-12 19:56] LABS: POC Glucose,Bedside 205 (70-110)
[2021-07-12 20:00] VITALS: BP 146/66; PULSE 72; RESP 18; TEMP 36.6; O2SAT 96
[2021-07-12 21:51] LABS: POC Glucose,Bedside 231 (70-110)
[2021-07-13] VITALS: BP 122/70; PULSE 65; RESP 18; TEMP 36.6; O2SAT 95
[2021-07-13 03:52] VITALS: BP 141/69; PULSE 69; RESP 18; TEMP 36.7; O2SAT 94
[2021-07-13 04:49] VITALS: BMI 38.1
[2021-07-13 07:44] VITALS: BP 132/62; PULSE 75; RESP 18; TEMP 36.7; O2SAT 96
--- NOTE | 2021-07-13 08:40 | HMH.ACPN2 ---
Internal Medicine - PN: Subj *Date: 07/13/21 *Time: 08:40 Interval history: Patient had a fairly restful night, has been eating well, vital signs have normalized. Patient continues to exhibit some aberrant behavior. She has sudden outburst of crying, with even minimal stimuli such as me saying good morning. Exam Vital signs and Labs for Last 24 Hours: Temp Pulse Resp BP Pulse Ox 98.1 F 75 18 132/62 96 07/13/21 07:44 07/13/21 07:44 07/13/21 07:44 07/13/21 07:44 07/13/21 07:44 Laboratory Results - last 24 hr 07/12/21 16:15: POC Glucose 205 H 07/12/21 21:19: POC Glucose 231 H I & O for Last 24 hours: Intake & Output 07/10/21 07/11/21 07/12/21 07/13/21 11:59 11:59 11:59 11:59 Intake Total 2026 / 2026 600 / 600 960 / 960 600 / 600 Output Total 1425 / 1425 0 / 0 Balance 601 / 601 600 / 600 960 / 960 600 / 600 Weight 213 lb 13.574 oz 213 lb 13.574 oz 208 lb 7 oz 207 lb 7 oz Narrative: Heart rate regular, lungs clear, right hemiparesis as previously noted. Cranial nerves seem intact. Abdomen soft. She is very uncooperative with the rest of the exam. Sudden outburst of crying, sobbing and inability to communicate once she begins any kind of conversation. Assessment and Plan (1) CVA (cerebral vascular accident) Status: Acute Qualifiers: CVA mechanism: unspecified Qualified Code(s): I63.9 - Cerebral infarction, unspecified Category: Medical Code(s): I63.9 - Cerebral infarction, unspecified (2) Hyperglycemia Status: Chronic Category: Medical Code(s): R73.9 - Hyperglycemia, unspecified (3) Hypertension Status: Chronic Qualifiers: Hypertension type: primary hypertension Qualified Code(s): I10 - Essential (primary) hypertension Category: Medical Code(s): I10 - Essential (primary) hypertension (4) Obesity Status: Acute Qualifiers: Obesity type: due to excess calories Obesity classification: adult class 3 (BMI >= 40) Serious obesity comorbidity presence: with serious comorbidity Body mass index: BMI 40.0-44.9 Qualified Code(s): E66.01 - Morbid (severe) obesity due to excess calories; Z68.41 - Body mass index [BMI] 40.0-44.9, adult Category: Medical Code(s): E66.9 - Obesity, unspecified (5) UTI (urinary tract infection) Status: Resolved Qualifiers: Urinary tract infection type: site unspecified Hematuria presence: without hematuria Qualified Code(s): N39.0 - Urinary tract infection, site not specified Category: Medical Code(s): N39.0 - Urinary tract infection, site not specified (6) Mental status alteration Status: Acute Category: Medical Code(s): R41.82 - Altered mental status, unspecified - Assessment and plan all Dx Assessment and Plan for all problems:: Patient stable from a medical perspective. Would strongly benefit from skilled care placement. There is absolutely no way this patient go home and be safe in her home environment. She is currently unable/unwilling to make appropriate decisions for herself. Her outburst and erratic behavior make me wonder about schizoaffective disorder versus acute delirium from her stroke-which I think is unlikely as she has had some of these behaviors in the past in the office, versus possible pseudobulbar affect. Wonder about benefiting from short-term geriatric psych evaluation. We will have our psychology/psychiatry service see her today.
[2021-07-13 11:19] VITALS: BP 125/68; PULSE 73; RESP 18; TEMP 36.9; O2SAT 97
--- NOTE | 2021-07-13 14:46 | HMH.DCSUM ---
General - General Admission date:: 07/09/21 Discharge date: 07/13/21 HPI HPI: 60-year-old white female with history of stroke with right-sided weakness several years ago, she is extremely debilitated at home from her multiple medical problems, obesity and her stroke disease. EMS was called because she has had trouble speaking over the past 24 hours. She has become extremely dysarthric, and has had trouble thinking of what to say and notes that her speech has been choppy. She was brought to the ER, and work-up including CT scan, labs, etc. were unremarkable except for trace leukocyte esterase and elevated blood pressure in the 180s. She was admitted for further observation, treatment of urinary tract infection and further delineation of neurologic deficits. EMS reported to the ER that she and her were having quite an intense argument when they arrived. The patient tells me that they have been arguing quite a bit at home and her tells her that everything is always my fault. She is extremely tearful about the situation. Hospital Course Hospital Course: Patient was admitted to hospital. She was found to have evidence of a very low-grade urinary tract infection and started on ceftriaxone. Mental status changes were significant from baseline, and MRI was done on 07/11/2021 which revealed multiple areas of small deficits consistent with embolic phenomenon. This is certainly consistent with her immobile state and mental status change. Patient's neurologic exam did not exhibit a lot of focal changes, continue to have left upper extremity paralysis but was able to move her left lower extremity fairly well. However, emotionally she had quite a bit new lability and our behavioral health specialist felt that she has significant depression versus pseudobulbar affect-and in my opinion this is related to her stroke disease both recent and recurrent disease. Blood pressure was well controlled after the addition of medicines in the hospital. She is reached maximal medical improvement, she will need ongoing physical therapy and probable long-term self-care given her significant disability from her previous and recurrent stroke disease. Plan we did transfer to the [facility] in [place] today. She will finish up 5 days of cefdinir for possible UTI although cultures have been negative. Given the embolic nature of her stroke we will place her on low-dose Eliquis therapy at 5 mg twice daily, she will need an outpatient echocardiogram to assess for possible ventricular thrombus but this can be done at the [facility] as it will not tire changer at this point. When she is at the penitentiary we will consider treatment for PBA versus escalating depression medication therapy. Please note she will need PT/OT/speech therapy evaluation. Please note that she will also need a CBC and a BMP in 3 days. Objective Vital signs: Temp Pulse Resp BP Pulse Ox 98.5 F 73 18 125/68 97 07/13/21 11:19 07/13/21 11:19 07/13/21 11:19 07/13/21 11:19 07/13/21 11:19 no acute distress, moderate distress, morbidly obese, chronically ill appearing - *Routine HEENT Exam Head: Present: normocephalic Eye: Present: EOMI, PERRL ENT: Present: mucous membranes moist - *Routine Neck Exam Present: supple - *Routine Respiratory Exam Present: CTA bilaterally - *Routine Cardiovascular Exam Present: RRR - *Routine Abdominal Exam Present: soft, normoactive bowel sounds. Absent: tenderness - *Routine Extremities Exam Absent: cyanosis, clubbing, edema - *Routine Skin Exam Present: warm. Absent: rash - *Routine Neurological Exam Present: alert Oriented x2. Extremely tearful at inappropriate stimuli. Left upper extremity paralysis and contractures. Bilateral lower extremities able to be moved. Previous edema and wounds in her legs noted. In good stages of healing at this point. - Detailed Ey
[2021-07-13 16:00] VITALS: BP 130/55; PULSE 71; RESP 18; TEMP 36.7; O2SAT 96
--- NOTE | 2021-07-13 17:07 | PC.NURSE ---
report called to [facility]. patient has had outbursts at time but overall has had a good day. when told about transfer to [facility] she seemed happy about this. appetite has been good. has rang out as needed
[2021-07-13 20:10] LABS: POC Glucose,Bedside 165 (70-110)
[2021-07-13 20:10] LABS: POC Glucose,Bedside 185 (70-110)
--- NOTE | 2021-07-14 09:22 | HMH.BHCONS ---
*Admission Date: 07/09/21 *Reason for consult:: behavioral changes *History of present illness: I interview patient at her bedside; on 07/13/2021. -I walked in the room; introduced myself and she automatically started crying -she states that this has been going on for a while -she states that she is here cause she had a stroke -but her didn't believe her -she laid there for a few hours; and then he finally called for her -that he didn't believe her -that she was using this as an excuse to get away from him -that she should be taking care of him; not him taking care of her -she told him that she knew she was having a stroke -she has had one before -she is currently having trouble getting her words out -states that she had this some with her 1st stroke but nothing like it is now -she states that she is flaccid on her left side -residual from her old stroke -3 years ago -but she was able to do things on her own -using a walker; she was able to do everything she could before her 1st stroke She states that her has only come to see her 1 time in here. -that he is locked in at home with his porn -she is going to turn the internet off and piss him off -she states they have been since 2002 -but he is not very supportive right now -he was at the beginning -but lately he has treated 'me like shit' She is currently on Zoloft. -states that she has been on this for a few years -maybe 6-7 years -she state that she was having a hard time controlling her emotions at the time they started this -that she was really grumpy off of this -she does better on this; but still grumpy and depressed right now She states that she had an average childhood. -her parents split -I asked her who she lived with; she states 'this has nothing to do with nothing' -she did not answer any further questions about her childhood She then went back to talking about her . -that she is so angry with him -that she has been crying off and on -but this is worse now -has been going on since her 1st stroke -her continues to tell her that nothing is wrong with her -that she is faking her symptoms -cause she will go from laughing to crying; to laughing -he will tell her that she is a fake -she is lying and making it all up -she states that the 1st stroke changed them both -and not for the good She states that she has 1 child; a son; he lives in [place]. -he does call and check on her -has been to see her since her admission here -her had 1 child; a daughter -she [place] 2019 [place] [employer] [place] -she states that both of her parents are still living -her dad comes to see her -her mom calls her -they are both supportive She states that her plan is to do rehab and get back walking again. -after her 1st stroke; she could still do for herself; she used a walker -but she was completely independent -then she fell and broke her ankle -it was her weak affected stroke ankle -and this was in May 2021 -so she hasn't been independent since then -and relying more on her -she states that she really misses her animals; has 3 cats and 3 dogs; they are all inside the house -she is really worried bout them -mentions them several times She states that she is open to the idea of increasing her zoloft. -that she would be glad 'if I could get back to normal' -she states that the crying; the yelling at everyone -this is not her -she states that she will try anything to stop this She then states that it is a good thing sh eis here. -that she was starting to have thoughts of suicide when she was at home -cause of being dependent on others -she states that she can't live like she was -she really wants to learn how to do things for herself again -so she is glad she is here and going to a rehab to get back up on her feet she states that she had thought about taking pills -never attempted before -she states that she doesn't have
== END 2021-07-13 18:32 | DRG 65 ==
LOC: ER 23:06 → 2ND 07-09 01:31
PROVIDERS: Admitting Provider Internal Medicine Adolescent Medicine; Emergency Provider Emergency Medicine; PCP Nurse Practitioner Family; Visit Provider Internal Medicine Adolescent Medicine
DX: I63.9 Cerebral infarction, unspecified (principal); N39.0 Urinary tract infection, site not specified; I69.351 Hemiplegia and hemiparesis following cerebral infarction affecting right dominant side; G81.94 Hemiplegia, unspecified affecting left nondominant side; G93.49 Other encephalopathy; R47.1 Dysarthria and anarthria; I10 Essential (primary) hypertension; J44.9 Chronic obstructive pulmonary disease, unspecified; F17.210 Nicotine dependence, cigarettes, uncomplicated; I69.322 Dysarthria following cerebral infarction; I69.320 Aphasia following cerebral infarction; Z79.4 Long term (current) use of insulin; E66.01 Morbid (severe) obesity due to excess calories; Z68.38 Body mass index [BMI] 38.0-38.9, adult; E78.5 Hyperlipidemia, unspecified; E11.65 Type 2 diabetes mellitus with hyperglycemia; R41.89 Other symptoms and signs involving cognitive functions and awareness; R27.0 Ataxia, unspecified
CPT/HCPCS: 36415; 70450; 70551; 71045; 80048; 80053; 80305; 81001; 82962; 83690; 84145; 84484; 85025; 85651; 86140; 87086; 87088; 87186; 93005; 97110; 97140; 97162; 97165; 97530; 99283; C9803; U0003; U0005